=== PATIENT | female | born 1945 | race African-American/Black ===

== ENCOUNTER 2023-02-13 09:41 | Outpatient (CLI) | payer MEDICARE, SELFPAY ==
--- NOTE | ~2023-02-13 | XR_ITS ---
EXAMINATION: XR lg joint inject/asp w image DATE: 02/13/2023 10:54 INDICATION: Right hip pain. TECHNIQUE: A time-out was performed to verify the patient's name, date of , and procedure to b e performed. The procedure including the risks, benefits, and alternatives was discussed with the pat ient. Risks discussed included bleeding and infection. The patient understood the risks and agreed to proceed. The skin overlying the right hip joint was prepped and draped in usual sterile fashion. A nesthetic was administered with 1% lidocaine subcutaneously. An 18-gauge needle was advanced under fl uoroscopic guidance into the joint. Fluid was aspirated. The needle was removed and the entry site wa s cleaned and dressed. There were no immediate complications. Fluoroscopy exposure time was 0.0 joaquín bret. The total number of images was 2. FINDINGS: Real-time fluoroscopy demonstrates the needle in the right hip joint. 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 IMPRESSION: 1. Fluoroscopy guided right hip joint aspiration yielding 1 mL serosanguineous fluid. Reviewed, dictated and finalized at location A.
== END 2023-02-13 09:42 | disposition home or self-care (01) ==
PROVIDERS: Visit Provider Orthopaedic Surgery
DX: M25.551 Pain in right hip (principal); Z96.641 Presence of right artificial hip joint
CPT/HCPCS: 20610; 77002; 87070; 87075; 87205